=== PATIENT | male | born 1975 | race Caucasian/White ===

== ENCOUNTER 2017-02-01 15:37 | Emergency (ER) | payer MEDICAID ==
[~2017-02-01] VITALS: Ht 177.8 cm; Wt 81.6 kg
[~2017-02-01 15:37] MED LIST: ALEVE220 MG PO; AMOXIL500 MG PO; BENZONATATE200 MG PO; HYDROCODONE1 TABLET PO; KEFLEX 500MG.500 MG PO; LORTAB 5/500 501 TAB PO; LORTAB 500 MG-71 TAB PO; MEDROL 4MG. DOSE4 MG PO; NAPROSYN 500MG500 MG PO; NOMEDS; PHENERGAN 25MG.25 M1 PO; PREDNISONE50 MG PO; PROVENTIL0.09 MG/A1 IH; ULTRAM 50 MG TA50 MG PO; ULTRAM50 MG PO; ZITHROMAX Z PA250 MG PO
--- NOTE | 2017-02-01 16:21 | Urgent Treatment Center Report ---
History of Present Issue Date/Time Seen by Provider 02/01/17 1600 Visit Reason Pt arrived:Walked Presenting Problem:PT C/O REDNESS AND SWELLING OF RIGHT FOOT Location if Accident: Onset of symptoms date/time:/ or onset unknown for:MEDICAL HX UNKNOWN Have you (or family members/close friends) recently traveled outside the [place]? N If Yes, where/when: Have you had exposure to infectious disease within the past month? TB? Other? Specify: Patient states that he noticed that his foot seems a little swollen and small red area around his toes. States that foot is tender at times to touch and swelling will get worse if he hangs his foot down. States that he is unsure if he has injured the foot or if the foot may be infected ALLERGIES Coded Allergies: phenazopyridine (Mild, 01/25/17) Home Medications Active Scripts Azithromycin (Zithromycin (Z-HERNESTO) 250MG Tab) 250 MG PO DAILY #6 TAB Prov: 01/25/17 ALBUTEROL (Proventil Hfa Inhaler) 1-2 PUFF IH Q4-6H PRN PRN SOA, wheezing #1 CAN Prov: 01/25/17 Methylprednisolone (Medrol Dose [place]) 4 MG PO UD #1 HERNESTO Prov: 01/25/17 Benzonatate 200 MG PO QHSP PRN cough #7 SGL Prov: 01/25/17 Reported Medications No Home Medications (NO HOME MEDICATIONS) History Medical History General CAD? No Angina: No [place]: No Hypertension? No Hyperlipidemia? No CHF? No DVT? No PE? No COPD? No Asthma? No Anemia? No GERD? No Gastric ulcers? No GI Bleed? No Hernia? No Thyroid Problems? No Hypothyroidism? No CVA? No Seizures? No Diabetes? No Renal Insuffiency? No UTI? No Stones? No BPH? No GB Disease: No Nephritic Syndrome? No Asplenia? No Hepatitis? No Sickle Cell Disease? No Arthritis? No Migraines? No Cataracts? No Glaucoma? No MRSA? Yes HIV? No TB? No Anxiety? No Depression? No Cancer? No More? No Immunization HX DT/Tetanus 1-4 YRS Surgical Hx Previous Surgery?Y LEFT THUMB TENDON REPAIR Social History Smoking Hx Smoker: Current Every Day Smoker Tobacco: Yes Type Cigarettes Packs/day < 1 Pack Alcohol Alcohol: No Review of Systems All Other Systems Reviewed and Negative Comment Pain swelling in right foot with redness around his toes. States that foot is sore and has pain when he walks Physical Exam Vital Signs Vital Signs Date Time Temp Pulse Resp B/P Pulse O2 O2 Flow FiO2 Ox Delivery Rate 02/01 1601 98.9 92 20 130/90 100 General Appearance normal appearance, WD/WN, no apparent distress Respiratory Status Yes: trachea midline, chest symmetrical, non tender chest. No: respiratory distress. 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 No Results/Orders Orders Procedure Date/time Status FOOT-RT-3 VIEWS 02/01 1618 Active Departure Departure Time of Disposition 1638 Disposition DC Home or Self Care(routine) Clinical Impression Primary Impression: Cellulitis Qualifiers: Site of cellulitis: unspecified site Qualified Code: L03.90 - Cellulitis, unspecified Condition STABLE Referrals Carlitos FERRIS,Vince JARA MD,ÁNGEL Connell Patient Instructions DI for Cellulitis -- Adult Additional Instructions Follow up with family doctor for further treatment If no improvement in foot in 2-3 days or worsening of symptoms, you need to follow up with family doctor for possible incision and drainage of the foot. Over the counter Motrin or Tylenol as needed for pain or fever REturn if needed If you notice red streaks or warmth to the foot report immediately to the ER Discharge Counseling Counseled pt/family regarding diagnosis, test results, medications/RX, home care, follow up needs Prescriptions Current Visit Scripts Ibuprofen (Ibuprofen 800MG) 800 MG PO QIDP PRN pain #30 TAB Clindamycin Hcl (Clindamycin 300MG) 300 MG PO QID #40 CAP Lactobacillus Acidophilus (Probiotic Acidophilus) 1 EACH PO DAILY #10 TAB at 1646
--- NOTE | 2017-02-01 16:43 | RADIOLOGY REPORT PS360 ---
FOOT-RT-3 VIEWS HISTORY: REDNESS AND SWELLING; NO KNOWN INJURY ORDERING PHYSICIAN: ZENY COOPER APRN PATIENT AGE: 41 years COMPARISON: None FINDINGS: No fracture or dislocation. No lytic or blastic change. There is normal mineralization.. The joint spaces are well-preserved. No significant degenerative/arthritic changes. No erosive changes evident. There is mild generalized soft tissue swelling. No soft tissue gas or radiopaque foreign body IMPRESSION: Mild soft tissue swelling otherwise negative
[2017-02-01] MEDS ORDERED: PROBIOTIC ACID1 EAC2 PO (16:45)
[2017-02-01] MEDS ORDERED: IBUPROFEN800 MG PO (16:45)
[2017-02-01] MEDS ORDERED: CLINDAMYCIN HC300 MG PO (16:45)
[2017-02-01 16:58] VITALS: BP 130/90
[2017-02-03] MEDS ORDERED: BUPRENORPHINE H1 TAB SL (15:45)
[2017-02-03] MEDS ORDERED: KEFLEX500 M1 PO (17:17)
[2017-02-03] MEDS ORDERED: CIPRO 500MG TA500 MG PO (17:17)
[2017-02-09] MEDS ORDERED: OXYCODONE 5MG TA5 MG PO (13:13)
[2017-02-09] MEDS ORDERED: ZYVOX600 MG PO (13:21)
== END 2017-02-01 16:59 | disposition home or self-care (01) ==
LOC: ER 15:37 → UTC 15:37
DX: L03.115 Cellulitis of right lower limb (principal); Z72.0 Tobacco use

== ENCOUNTER 2017-05-20 18:05 | Outpatient (CLI) | payer MEDICAID ==
[~2017-05-20 18:05] MED LIST changes: +ACETAMIN W/CODE1 TAB PO; +BACTRIM DS 8001 TAB PO; +BACTROBAN2% TP; +BUPRENORPHINE H1 TAB SL; +CIPRO 500MG TA500 MG PO; +CLINDAMYCIN HC300 MG PO; +IBUPROFEN800 MG PO; +KEFLEX500 M1 PO; +OXYCODONE 5MG TA5 MG PO; +PROBIOTIC ACID1 EAC2 PO; +ZYVOX600 MG PO
== END 2017-05-20 18:26 | disposition home or self-care (01) ==
LOC: COP 18:05
DX: L02.31 Cutaneous abscess of buttock (principal); Z48.01 Encounter for change or removal of surgical wound dressing
CPT/HCPCS: G0463

== ENCOUNTER → 2017-05-22 | Outpatient (CLI) | payer MEDICAID ==
[2017-05-22 10:30] VITALS: BP 123/68
== END ==
LOC: COP 10:20
DX: L02.31 Cutaneous abscess of buttock (principal); Z48.01 Encounter for change or removal of surgical wound dressing
CPT/HCPCS: G0463